=== PATIENT | male | born 1985 | race Caucasian/White ===

== ENCOUNTER 2017-05-27 16:11 | Emergency (ER) | payer MEDICAID ==
[2017-05-27 16:18] VITALS: BP 150/91; PULSE 78; RESP 17; TEMP 97.5; O2SAT 96
[2017-05-27] MEDS ORDERED: predniSONE 20 MG TAB PO ONE (16:35)
--- NOTE | 2017-05-27 16:39 | EDPHY ---
H & P Stated Complaint: hx back surg in july/slipped today exacerbating back prob Time Seen by Provider: 05/27/17 16:20 HPI/ROS: CHIEF COMPLAINT: The radiculopathy HISTORY OF PRESENT ILLNESS: The patient is a 32-year-old man with a history of L4-5 diskectomy 1 year ago. He states that today he was shopping and slipped on the ice and caught himself but had a awkward twisting movement. He had immediate pain to his right gluteus and lateral thigh. It does not radiate to his knees or feet. No weakness or numbness. No bowel or bladder abnormalities. He has continued pain now but is able to ambulate. He states that in the past he has taken Neurontin with some relief however it made him feel very confused and unable to hold a conversation so he self discontinued. He has had success with steroids in the past. He did not fall to the ground. He has no midline back pain or bony lumbar pain. REVIEW OF SYSTEMS: Constitutional: denies: chills, fever, recent illness, recent injury EENTM: denies: blurred vision, double vision, nose congestion Respiratory: denies: cough, shortness of breath Cardiac: denies: chest pain, irregular heart rate, lightheadedness, palpitations Gastrointestinal/Abdominal: denies: abdominal pain, diarrhea, nausea, vomiting, blood streaked stools Genitourinary: denies: dysuria, frequency, hematuria, pain Musculoskeletal: See HPI Skin: denies: lesions, rash, jaundice, bruising Neurological: denies: headache, numbness, paresthesia, tingling, dizziness, weakness Hematologic/Lymphatic: denies: blood clots, easy bleeding, easy bruising Immunologic/allergic: denies: HIV/AIDS, transplant EXAM: GENERAL: Well-appearing, well-nourished and in no acute distress. HEAD: Atraumatic, normocephalic. EYES: Pupils equal round and reactive to light, extraocular movements intact, sclera anicteric, conjunctiva are normal. ENT: TMs normal, nares patent, oropharynx clear without exudates. Moist mucous membranes. NECK: Normal range of motion, supple without lymphadenopathy or JVD. LUNGS: Breath sounds clear to auscultation bilaterally and equal. No wheezes rales or rhonchi. HEART: Regular rate and rhythm without murmurs, rubs or gallops. ABDOMEN: Soft, nontender, normoactive bowel sounds. No guarding, no rebound. No masses appreciated. BACK: No CVA tenderness, no spinal tenderness, step-offs or deformities EXTREMITIES: Normal range of motion, no pitting or edema. No clubbing or cyanosis. NEUROLOGICAL: Cranial nerves II through XII grossly intact. Normal speech, normal gait. 5/5 strength, normal movement in all extremities, normal sensation , normal reflexes PSYCH: Normal mood, normal affect. SKIN: Warm, dry, normal turgor, no visible rashes or lesions. Source: Patient, Family - Personal History Current Tetanus/Diphtheria Vaccine: Yes - Medical/Surgical History Hx Asthma: No Hx Chronic Respiratory Disease: No Hx Diabetes: No Hx Cardiac Disease: No Hx Renal Disease: No Hx Cirrhosis: No Hx Alcoholism: No Hx HIV/AIDS: No Hx Splenectomy or Spleen Trauma: No Other PMH: back surg - Family History Significant Family History: No pertinent family hx - Social History Smoking Status: Current every day smoker Alcohol Use: Sober Drug Use: None Constitutional: Initial Vital Signs Temperature (C) 36.4 C 05/27/17 16:15 Heart Rate 78 05/27/17 16:15 Respiratory Rate 17 05/27/17 16:15 Blood Pressure 150/91 H 05/27/17 16:15 O2 Sat (%) 96 05/27/17 16:15 O2 Delivery Mode Room Air Allergies/Adverse Reactions: amoxicillin Allergy (Verified 05/27/17 16:15) Home Medications: Medication Instructions Recorded [place] 5/325 (*) 05/27/17 predniSONE 60 mg PO DAILY #15 tab 05/27/17 Medical Decision Making ED Course/Re-evaluation: The patient clinically has radiculopathy. He does not have any deficits on exam. He is able to ambulate. He has no weakness or bowel or bladder abnormalities. He is requesting a course of steroids. I will also have him follow up with his surgeon Dr. Obey Rowell. He is happy with this plan and declines any imaging at this time. He does not have any objective neurologic deficits. We discussed indications for returning to the emergency department. Differential Diagnosis: Partial list of the Differential diagnosis considered include but were not limited to; radiculopathy, muscle strain and although unlikely based on the history and physical exam, I also considered fracture, spinal cord compression, cauda equina. I discussed these differential diagnoses and the plan with the patient as well as the usual and expected course. The patient understands that the diagnosis is provisional and that in medicine we are not always correct and that further workup is often warranted. Usual and customary warnings were given. All of the patient's questions were answered. The patient was instructed to return to the emergency department should the symptoms at all worsen or return, otherwise to followup with the physician as we discussed. - Data Points Medications Given: Discontinued Medications Prednisone (Prednisone) 60 mg PO EDNOW ONE Stop: 05/27/17 16:36 Last Admin: 05/27/17 16:38 Dose: 60 mg Departure - Departure Disposition: Home, Routine, Self-Care Clinical Impression: Lumbar radiculopathy, right Condition: Fair Instructions: Lumbar Radiculopathy (ED) Referrals: [facility] [Other] - As per Instructions Hayder Wang MD [Medical Doctor] - 2-3 days without fail Prescriptions: predniSONE 60 mg PO DAILY #15 tab
== END 2017-05-27 16:53 | disposition home or self-care (01) ==
DX: M54.16 Radiculopathy, lumbar region (principal); F17.200 Nicotine dependence, unspecified, uncomplicated

== ENCOUNTER 2018-01-15 | Emergency (ER) | payer SELFPAY | END 2018-01-15 10:35 | disposition home or self-care (01) ==

== ENCOUNTER 2018-04-30 19:34 | Emergency (ER) | payer MEDICAID ==
--- NOTE | 2018-04-30 19:39 | EDPHY ---
H & P Time Seen by Provider: 04/30/18 19:38 HPI/ROS: HPI: This is a 33-year-old male who presents with Chief Complaint: Chest tightness Location: Chest Quality: Tightness Duration: Since this morning Signs and Symptoms: no shortness of breath at rest, no shortness of breath on exertion, + productive cough, + chest pain, no palpitations, no lower extremity edema, no wheezing, no orthopnea, no paroxysmal nocturnal dyspnea, no fever, no injury/trauma, no hemoptysis, no carpal pedal spasms Timing: Acute, constant Severity: Moderate Context: Patient is a tobacco user, presents via EMS with complaints of generalized anterior chest tightness that is worsened with inspiration and coughing episodes. Patient reports that he has had nasal congestion, sinus drainage, productive cough x6 days. Chest tightness started this morning when he woke up. He just finished taking a Z-pack. Patient was walking to the urgent care when he slipped on ice, twisted his upper and lower back and landed on his right outstretched hand. He is right-hand dominant. Patient reports that he has scratches to the palm of his right hand but no bleeding, decreased range of motion, weakness. He complains of mid to lower back discomfort that is worsened with flexion, extension and bilateral rotation. He was ambulatory at the scene per EMS. Denies head injury, loss of consciousness, neck pain, dizziness, nausea, vomiting, amnesia. Patient reports his father had a massive [place] at the age of 52. Modifying Factors: Azithromycin Comment: ROS: A comprehensive 10 system review of systems is otherwise negative aside from elements mentioned in the history of present illness. MEDICAL/SURGICAL/SOCIAL HISTORY: Medical history: Alcoholism, depression Surgical history: Back surgery Social history: Tobacco user CONSTITUTIONAL: Slightly anxious, well-appearing, adult white male, awake and alert, no obvious distress HEENT: Atraumatic and normocephalic, PERRL, EOMI. Nares patent; no rhinorrhea; no nasal mucosal edema. Tympanic membranes clear. Oropharynx clear, no exudate and moist pink mucosa. Airway patent. No lymphadenopathy. NECK: supple, no midline tenderness, flexion 45 degrees, extension 45 degrees, right and left lateral flexion 45 degrees. Cardiovascular: Normal S1/S2, regular rate, regular rhythm, without murmur rub or gallop. PULMONARY/CHEST: Symmetrical and nontender. Clear to auscultation bilaterally. Good air movement. No accessory muscle usage. ABDOMEN: Soft, nondistended, nontender, no rebound, no guarding, no peritoneal signs, no masses or organomegaly. No CVAT. BACK: No midline tenderness, no paraspinous spasm, deep tendon reflexes 2/2, no pain with straight leg raise, No foot drop. Achilles reflexes are equal bilaterally. Able to walk on heels and toes without difficulty. Mild pain with flexion and extension. EXTREMITIES: 2/2 pulses, strength 5/5, right WRIST: Extension to 70, flexion to 80, radial deviation to 20 degree, ulnar deviation to 30, no scaphoid tenderness, no tenderness over ulnar styloid, no tenderness over radial styloid. no deformities, no clubbing, no cyanosis or edema. NEUROLOGICAL: no focal neuro deficits. GCS 15. SKIN: Warm and dry, superficial abrasions noted to right palm with no active bleeding. Good capillary refill. Source: Patient Exam Limitations: No limitations - Medical/Surgical History Hx Asthma: No Hx Chronic Respiratory Disease: No Hx Diabetes: No Hx Cardiac Disease: No Hx Renal Disease: No Hx Cirrhosis: No Hx Alcoholism: No Hx HIV/AIDS: No Hx Splenectomy or Spleen Trauma: No Other PMH: back surg - Social History Smoking Status: Current every day smoker Constitutional: Initial Vital Signs Temperature (C) 36.8 C 04/30/18 19:39 Heart Rate 98 04/30/18 19:39 Respiratory Rate 18 04/30/18 19:39 Blood Pressure 142/96 H 04/30/18 19:39 O2 Sat (%) 95 04/30/18 19:39 O2 Delivery Mode Room Air Allergies/Adverse Reactions: amoxicillin Allergy (Verified 04/30/18 19:42) Diarrhea Home Medications: Medication Instructions Recorded Albuterol Sulfate [Proair Hfa] 1 - 2 puffs IH Q4 PRN #1 hfa.[email or web address] 04/30/18 Suboxone 12 mg-3 mg Sl Film 04/30/18 Vistaril 04/30/18 predniSONE [predniSONE TAPER] 10 mg PO DAILY 6 Days ea 04/30/18 traZODone 04/30/18 Medical Decision Making - Diagnostics Imaging Results: Imaging Impressions Chest X-Ray 04/30/18 19:42 Impression: Normal chest x-ray. Hand X-Ray 04/30/18 19:42 Impression: Normal right hand series. Lumbar Spine X-Ray 04/30/18 19:42 Impression: Normal limited lumbar spine series. ED Course/Re-evaluation: Vital signs reviewed and show no hypoxia, respiratory distress but shows a heart rate of 98. IV access and laboratory studies including chest x-ray, lumbosacral x-ray, right hand x-ray and EKG ordered EKG my read shows sinus tachycardia rate of 96 beats per minute, nonspecific ST changes, no acute ischemic changes Patient given DuoNeb, 500 cc normal saline bolus, IV Toradol 30 mg 2004: Notified by tech that troponin is 0.00 Labs reviewed. WBC 10 K with no left shift. No signs of anemia/platelet dysfunction/electrolyte imbalance/acute kidney injury/VTE HEART score= low risk Chest x-ray my read shows no opacity, no effusion, no pneumothorax. Lumbosacral x-ray my read shows no fracture; moderate stool burden Right hand x-ray my read shows no fracture, dislocation. Suspect costochondritis from bronchitis. No indication for extending antibiotic course or giving another antibiotic. Advised to take NSAIDs, short steroid taper for bronchospasm; albuterol inhaler as needed This patient was seen under the supervision of my secondary supervising physician. I evaluated care for this patient independently. Discussed this patient with Dr. Pagan. Differential Diagnosis: Chest pain including but not limited to myocardial ischemia, pulmonary embolus, chest wall pain, pleural inflammation and pulmonary infectious causes. - Data Points Laboratory Results: Laboratory Results 04/30/18 19:45 04/30/18 19:45 04/30/18 04/30/18 04/30/18 19:47 19:45 19:45 WBC RBC Hgb Hct MCV MCH MCHC RDW Plt Count MPV Neut % (Auto) Lymph % (Auto) Whitley % (Auto) Eos % (Auto) Baso % (Auto) Nucleat RBC Rel Count Absolute Neuts (auto) Absolute Lymphs (auto) Absolute Monos (auto) Absolute Eos (auto) Absolute Basos (auto) Absolute Nucleated RBC Immature Gran % Immature Gran # D-Dimer < 0.27 ug/mLFEU ug/mLFEU (0.00-0.50) Sodium 139 mEq/L mEq/L (135-145) Potassium 4.0 mEq/L mEq/L (3.3-5.0) Chloride 104 mEq/L mEq/L (97-110) Carbon Dioxide 21 mEq/l L mEq/l (22-31) Anion Gap 14 mEq/L mEq/L (6-14) BUN 12 mg/dL mg/dL (7-23) Creatinine 0.7 mg/dL mg/dL (0.7-1.3) Estimated GFR > 60 Glucose 121 mg/dL H mg/dL (70-100) Calcium 9.4 mg/dL mg/dL (8.5-10.4) POC Troponin I 0.00 ng/mL ng/mL (0.00-0.08) 04/30/18 19:45 WBC 10.02 10^3/uL H 10^3/uL (3.80-9.50) RBC 5.15 10^6/uL 10^6/uL (4.40-6.38) Hgb 14.8 g/dL g/dL (13.7-17.5) Hct 41.5 % % (40.0-51.0) MCV 80.6 fL L fL (81.5-99.8) MCH 28.7 pg pg (27.9-34.1) MCHC 35.7 g/dL g/dL (32.4-36.7) RDW 12.3 % % (11.5-15.2) Plt Count 179 10^3/uL 10^3/uL (150-400) MPV 8.9 fL fL (8.7-11.7) Neut % (Auto) 57.2 % % (39.3-74.2) Lymph % (Auto) 28.2 % % (15.0-45.0) Whitley % (Auto) 8.8 % % (4.5-13.0) Eos % (Auto) 3.9 % % (0.6-7.6) Baso % (Auto) 0.8 % % (0.3-1.7) Nucleat RBC Rel Count 0.0 % % (0.0-0.2) Absolute Neuts (auto) 5.73 10^3/uL 10^3/uL (1.70-6.50) Absolute Lymphs (auto) 2.83 10^3/uL 10^3/uL (1.00-3.00) Absolute Monos (auto) 0.88 10^3/uL H 10^3/uL (0.30-0.80) Absolute Eos (auto) 0.39 10^3/uL 10^3/uL (0.03-0.40) Absolute Basos (auto) 0.08 10^3/uL 10^3/uL (0.02-0.10) Absolute Nucleated RBC 0.00 10^3/uL 10^3/uL (0-0.01) Immature Gran % 1.1 % % (0.0-1.1) Immature Gran # 0.11 10^3/uL H 10^3/uL (0.00-0.10) D-Dimer Sodium Potassium Chloride Carbon Dioxide Anion Gap BUN Creatinine Estimated GFR Glucose Calcium POC Troponin I Medications Given: Discontinued Medications Albuterol/Ipratropium (Duoneb) 3 ml IH EDNOW ONE Stop: 04/30/18 19:44 Last Admin: 04/30/18 19:47 Dose: 3 ml Sodium Chloride (Ns) 500 mls @ 1,000 mls/hr IV EDNOW ONE PRN Reason: Protocol Stop: 04/30/18 20:12 Last Admin: 04/30/18 19:48 Dose: 500 mls Ketorolac Tromethamine (Toradol) 30 mg IVP EDNOW ONE Stop: 04/30/18 19:48 Last Admin: 04/30/18 19:58 Dose: 30 mg Point of Care Test Results: Chemistry 04/30/18 19:47 POC Troponin I 0.00 ng/mL ng/mL (0.00-0.08) Departure - Departure Disposition: Home, Routine, Self-Care Clinical Impression: Costochondritis, Bronchitis Condition: Good Instructions: Costochondritis (ED), Acute Bronchitis (ED) Additional Instructions: Take steroid taper as directed. Use albuterol inhaler every 4 hr as needed for shortness of breath, wheezing. Take Tylenol 650 mg every 4 hours and/or Ibuprofen 600 mg every 8 hours with food as needed for pain. [facility] 5-7 days if no improvement. Referrals: [facility],. [Clinic] - 5-7 days, if not improved Prescriptions: Albuterol Sulfate [Proair Hfa] 1 - 2 puffs IH Q4 PRN #1 hfa.aer.ad PRN Reason: Short Of Breath/Dyspnea predniSONE [predniSONE TAPER] 10 mg PO DAILY 6 Days ea
[2018-04-30] MEDS ORDERED: NS 500 ML IV ONE (19:43)
[2018-04-30] MEDS ORDERED: IPRATROPIUM/ALBUTEROL 3 ML DEYVIAL IH ONE (19:43)
--- NOTE | 2018-04-30 19:45 | CPEKG ---
Test Reason : OPEN Blood Pressure : / mmHG Vent. Rate : 096 BPM Atrial Rate : 094 BPM P-R Int : 155 ms QRS Dur : 093 ms QT Int : 363 ms P-R-T Axes : 029 040 030 degrees QTc Int : 459 ms Sinus rhythm Confirmed by Robbie Pagan ([id number]) on 04/30/2018 7:45:29 PM Referred By: Confirmed By:Robbie Pagan
[2018-04-30] MEDS ORDERED: KETOROLAC 30 MG/1 ML SDV IVP ONE (19:47)
[2018-04-30 19:48] LABS: PLATELET COUNT 179 10^3/uL (150-400)
[2018-04-30 20:47] VITALS: BP 138/82
== END 2018-04-30 20:46 | disposition home or self-care (01) ==
LOC: EDUNIT#
DX: M94.0 Chondrocostal junction syndrome [Tietze] (principal); J40 Bronchitis, not specified as acute or chronic; E86.9 Volume depletion, unspecified; F17.200 Nicotine dependence, unspecified, uncomplicated
CPT/HCPCS: 84484-PO; 96374; J1885